=== PATIENT | female | born 1955 | race Caucasian/White ===

== ENCOUNTER → 2019-09-25 12:03 | Outpatient (CLI) | payer BC, SELFPAY ==
--- NOTE | 2019-09-25 12:15 | XR_ITS ---
PROCEDURE: XR ELBOW RT MIN 3V CLINICAL INDICATION: INJURY RT ELBOW Posttraumatic pain COMPARISON: No exams were available for comparison FINDINGS: No fracture or dislocation. No lytic or blastic change. There is normal mineralization. The joint spaces are well-preserved. No significant degenerative/arthritic changes. No erosive changes evident. Other findings:None. IMPRESSION: No acute findings. Dictated by: Daniel Pearson MD 09/25/2019 15:02 Electronically signed by Daniel Pearson MD in [place] 09/25/2019 15:02
== END ==
PROVIDERS: PCP Family Medicine; Visit Provider Nurse Practitioner Family
DX: S59.901A Unspecified injury of right elbow, initial encounter (principal)
CPT/HCPCS: 73080

== ENCOUNTER → 2021-11-18 18:21 | Outpatient (CLI) | payer OTHER, MEDICARE, SELFPAY ==
[2021-11-18 18:24] LABS: Adenovirus,PCR Not Detected (NotDetected); Bordetella Pertussis Not Detected (NotDetected); Chlamydophila Pneumoniae, PCR Not Detected (NotDetected); Coronavirus 229E Not Detected (NotDetected); Coronavirus NL63 Not Detected (NotDetected); Coronavirus OC43 Not Detected (NotDetected); Coronovirus HKU1,PCR Not Detected (NotDetected); Human Metapneumovirus Not Detected (NotDetected); Influenza A, PCR Not Detected (NotDetected); Influenza AH1, 2009 Not Detected (NotDetected); Influenza AH1, PCR Not Detected (NotDetected); Influenza AH3,PCR Not Detected (NotDetected); Influenza B, PCR Not Detected (NotDetected); Mycoplasma Pneumoniae, PCR Not Detected (NotDetected); Parainfluenza 1, PCR Not Detected (NotDetected); Parainfluenza 2, PCR Not Detected (NotDetected); Parainfluenza 3, PCR Not Detected (NotDetected); Parainfluenza 4, PCR Not Detected (NotDetected); Respiratory Syncytial Virus Not Detected (NotDetected); Rhinovirus/Enterovirus Not Detected (NotDetected)
[2021-11-18 23:44] LABS: Coronavirus 19, PCR Detected (NotDetected)
== END ==
PROVIDERS: Visit Provider Nurse Practitioner Family
DX: U07.1 COVID-19 (principal)
CPT/HCPCS: 87581; 87632; 87798; C9803; U0003; U0005

== ENCOUNTER 2022-08-23 17:03 | Emergency (ER) | payer MEDICARE, SELFPAY ==
--- NOTE | 2022-08-23 17:06 | HMH.EDUPEXT ---
Discharge Plan Disposition Patient Disposition: Home, Self-Care Condition: Fair Chief Complaint: Extremity Injury, Upper Prescriptions Prescriptions: No Action levothyroxine 75 mcg tablet 75 mcg PO azithromycin 250 mg tablet 250 mg PO QDAY 5 Days Qty: 6 0RF Referrals Follow up/Referrals: Milana Alegria MD [Primary Care Provider] - See instructions Mike Quiles JR, MD [Physician] - See instructions Activity Restrictions/Add. Instructions Additional Instructions/Restrictions: Follow-up with an orthopedist of your choice. We will please follow-up with the orthopedist within the next 7 days. Keep your affected arm elevated. You may take [id number] Tylenol for pain as needed. Please return to the emergency department if you feel worse in any way. Use of the arm sling as needed. Clinical Impressions Clinical Impression: Fracture of wrist Discharge ED Provider: Maryjo Torres Upper Extremity HPI General Chief Complaint: Extremity Injury, Upper Stated Complaint: [id number] fell injured L wrist Time Seen by Provider: 08/23/22 17:06 Mode of Arrival: Ambulatory Source of Information: Patient and Spouse Limitations: No Limitations History of Present Illness HPI narrative: The patient fell just prior to arrival and injured her left forearm and wrist. She denies any other injuries. She slipped on her wet flip-flops Related Data Home Medications Medication Instructions Recorded Confirmed levothyroxine 75 mcg tablet 75 mcg PO 11/18/21 11/18/21 Previous Rx's Medication Instructions Recorded azithromycin 250 mg tablet 250 mg PO QDAY resp infection 5 11/18/21 days #6 tabs Allergies Allergy/AdvReac Type Severity Reaction Status Date / Time Sulfonamide Allergy Severe BLISTERS Uncoded 11/18/21 16:21 IN MOUTH From Ketorolac Tromethamine Allergy Mild HEADACHE Uncoded 11/18/21 16:21 CRAB LEGS Allergy Unknown SEVERE ABD Uncoded 11/18/21 16:21 CRAMPS Aspirin AdvReac Mild CAUSES Uncoded 11/18/21 16:21 NERVOUSNESS CONTRAST DYE AdvReac Unknown ITCHY RASH Uncoded 11/18/21 16:21 [facility] Medical History (Updated 08/23/22 @ 18:51 by Maryjo Torres MD) Thyroid disease Family History (Updated 08/23/22 @ 17:17 by Anni Pineda RN) Other No significant family history Social History (Updated 08/23/22 @ 17:17 by Anni Pineda RN) Smoking Status: Current every day smoker alcohol intake: never current occupational status: retired Travel in the last 8 weeks: None ROS Obtained: Yes All systems reviewed & no additional complaints except as documented Physical Exam General General appearance: alert and in no apparent distress Head Head exam: atraumatic, normocephalic and normal inspection Eye Eye exam: Present normal appearance, PERRL and EOMI ENT ENT exam: Present normal exam, normal oropharynx, mucous membranes moist, TM's normal bilaterally and normal external ear exam Neck Neck exam: Present normal inspection, full ROM and trachea midline; Absent meningismus or lymphadenopathy Chest Chest inspection: Present normal inspection and symmetric chest wall rise; Absent tenderness Respiratory Respiratory exam: Present normal lung sounds bilaterally; Absent respiratory distress Cardiovascular Cardiovascular exam: Present regular rate and normal rhythm; Absent JVD Abdominal Exam Abdominal exam: Present soft and normal bowel sounds; Absent distention, tenderness or guarding Extremities Exam Extremities exam: Present tenderness (There is tenderness over the distal ulna and radius. There is no deformity. The extremity is neurovascularly intact.) and normal capillary refill; Absent normal inspection, full ROM or calf tenderness Back Exam Back exam: Present normal inspection; Absent tenderness Neurological Exam Neurological exam: Present alert and oriented X3 Psychiatric Psychiatric exam: Present normal affect and normal mood Skin Skin exam: Present wa
--- NOTE | 2022-08-23 17:07 | PC.NURSE ---
ED MD AT BEDSIDE FOR EVALUATION
--- NOTE | 2022-08-23 17:10 | XR_ITS ---
PROCEDURE INFORMATION: Exam: XR Left Forearm Exam date and time: 08/23/2022 5:11 PM Age: 67 years old Clinical indication: Injury or trauma; Fall; Blunt trauma (contusions or hematomas); Arm, lower; Left TECHNIQUE: Imaging protocol: Radiologic exam of the Left forearm. Views: 2 views. COMPARISON: CR Wrist L 08/23/2022 5:09 PM FINDINGS: Bones/joints: Mildly displaced distal metaphyseal fractures of the radius and ulna. There is mild posterior angulation of the radial fracture. Mild demineralization of the bones. Soft tissues: Edema around the fractures. IMPRESSION: Mildly displaced distal metaphyseal fractures of the radius and ulna. There is mild posterior angulation of the radial fracture.
--- NOTE | 2022-08-23 17:10 | XR_ITS ---
PROCEDURE INFORMATION: Exam: XR Left Wrist Exam date and time: 08/23/2022 5:09 PM Age: 67 years old Clinical indication: Injury or trauma; Fall; Blunt trauma (contusions or hematomas); Wrist; Left TECHNIQUE: Imaging protocol: Radiologic exam of the Left wrist. Views: 3 or more views. COMPARISON: No relevant prior studies available. FINDINGS: Bones/joints: Mildly displaced distal metaphyseal fractures of the radius and ulna. There is mild posterior angulation of the radial fracture. Mild demineralization of the bones. Soft tissues: Edema around fractures. IMPRESSION: Mildly displaced distal metaphyseal fractures of the radius and ulna. There is mild posterior angulation of the radial fracture.
[2022-08-23 17:12] VITALS: BP 164/104; PULSE 83; RESP 18; TEMP 36.8; O2SAT 99; BMI 21.2
--- NOTE | 2022-08-23 17:17 | PC.NURSE ---
pt ambulated to xray
--- NOTE | 2022-08-23 17:18 | PC.NURSE ---
PT TO XR
--- NOTE | 2022-08-23 17:23 | PC.NURSE ---
PT RETURNED FROM XR
[2022-08-23 17:27] VITALS: BP 154/90; PULSE 72; RESP 18; O2SAT 99
[2022-08-23 17:31] VITALS: BP 160/89; PULSE 75; RESP 16; O2SAT 97
[2022-08-23 18:00] VITALS: BP 155/95; PULSE 78; RESP 16; O2SAT 97
--- NOTE | 2022-08-23 18:27 | PC.NURSE ---
PT UPDATED ON POC, ASSISTED UP TO BR AT THIS TIME
--- NOTE | 2022-08-23 18:40 | PC.NURSE ---
ED MD AT BEDSIDE TO APPLY SPLINT
--- NOTE | 2022-08-23 19:11 | PC.NURSE ---
sling applied to L arm
[2022-08-23 19:56] VITALS: BP 152/92; PULSE 78; RESP 16; TEMP 36.6; O2SAT 98
== END 2022-08-23 19:58 | disposition home or self-care (01) ==
PROVIDERS: Emergency Provider Emergency Medicine; PCP Family Medicine
DX: S52.602A Unspecified fracture of lower end of left ulna, initial encounter for closed fracture (principal); S52.92XA Unspecified fracture of left forearm, initial encounter for closed fracture; E07.9 Disorder of thyroid, unspecified; Z79.899 Other long term (current) drug therapy; Z88.2 Allergy status to sulfonamides; Z88.6 Allergy status to analgesic agent; Z88.8 Allergy status to other drugs, medicaments and biological substances; Z91.041 Radiographic dye allergy status; Z91.013 Allergy to seafood; W01.198A Fall on same level from slipping, tripping and stumbling with subsequent striking against other object, initial encounter; F17.210 Nicotine dependence, cigarettes, uncomplicated
CPT/HCPCS: 29125; 73090; 73110; 99284

== ENCOUNTER → 2023-09-11 09:19 | Outpatient (CLI) | payer MEDICARE, SELFPAY ==
--- NOTE | 2023-09-11 09:25 | XR_ITS ---
FINAL REPORT CLINICAL HISTORY: Osteoporosis screening COMPARISON: None FINDINGS: Using L1-4, the bone mineral density of the spine is 0.685 g/cm2, corresponding to T-score of -3.3, consistent with osteoporosis. Using the left hip, the bone mineral density of the femoral neck is 0.683 g/cm2, corresponding to a T-score of -2.1, consistent with low bone density. Using the right hip, the bone mineral density of the femoral neck is 0.545 g/cm2, corresponding to a T-score of -2.7, consistent with osteoporosis. FRAX not reported because T score at or below -2.5. NOTE: T-score: Standard deviation compared with peak bone mass of young adult mean. *Following the recommendations of the International Society of Bone densitometry, classification of hip BMD is based on the lower of two T-scores; total hip or femoral neck. IMPRESSION: Diminished bone mineral density consistent with osteoporosis. Reviewed, Interpreted and Dictated by James Reagan III, MD Transcribed by Cheryle Bradley Authenticated and [facility]
== END ==
PROVIDERS: PCP Family Medicine; Visit Provider Nurse Practitioner
DX: M81.0 Age-related osteoporosis without current pathological fracture
CPT/HCPCS: 77080

== ENCOUNTER 2023-12-25 11:57 | Outpatient (CLI) | payer MEDICARE, SELFPAY ==
--- NOTE | 2023-12-25 12:12 | XR_ITS ---
FINAL REPORT CLINICAL HISTORY: CHEST PAIN x 1 month FINDINGS: Two views of the chest were obtained. The heart size and pulmonary vascularity are within normal limits. The mediastinum is normal. No acute pulmonary abnormality is identified. The lungs are hyperinflated consistent with COPD. There is no pneumothorax. The bony thorax is intact. IMPRESSION: Hyperinflation consistent with COPD Reviewed, Interpreted and Dictated by James Reagan III, MD Transcribed by Kelle Thompson Authenticated and [facility]
== END 2023-12-25 23:59 ==
LOC: RAD 12:00
PROVIDERS: PCP Nurse Practitioner; Visit Provider Nurse Practitioner
DX: R07.9 Chest pain, unspecified (principal); K21.00 Gastro-esophageal reflux disease with esophagitis, without bleeding
CPT/HCPCS: 71046

== ENCOUNTER 2024-01-18 06:14 | Outpatient (CLI) | payer MEDICARE, SELFPAY ==
--- NOTE | 2024-01-18 06:21 | NM_ITS ---
APPROVED REPORT Exam: Nuclear Stress Test Indication: HYPERLIPIDEMIA, C.P. Patient Location: Outpatient Stress Tech: Mandi Nunn NE Tech:Anni WakefieldCLEM RT(R)(N) Ht: 5 ft 5 in Wt: 128 lbs Bra Size: 38C HR: 59 bpm BP: 180/95 mmHg BSA: 1.64 m2 Rhythm: NSR TID: 1.14 BMI: 21.2 History: HYPERLIPIDEMIA, C.P Procedure: Patient exercised on Fausto protocol 6:30 minutes and sec, resting heart rate 59 bpm, resting blood pressure 180/95 mmHg, with exercise maximum heart rate achived was 144 bpm which is 95 % of the maximum predicted heart rate and blood pressure was 181/97 mmHg. Test was stopped due to FATIGUE, C.P.. Patient has Average exercise capacity, achieved 7.0 METs of workload on treadmill, the blood pressure response to exercise was Blunted. Cardiac Stress and Resting SPECT Images: Cardiac Stress and Resting SPECT images were obtained using technetium 99m Myoview 31.0 mCi stress and 10.75 mCi at rest. Resting and stress imaging in supine and prone positions demonstrate no evidence of fixed or reversible perfusion defects. Gated imaging demonstrates normal global and regional LV systolic function. LVEF is calculated at 58%. Conclusion: No evidence of fixed or reversible perfusion defects. Gated imaging demonstrates normal global and regional LV systolic function. LVEF is calculated at 58%. Of note, the patient had average exercise capacity with Fausto protocol. At baseline, she had elevated BP. At peak stress, she had a blunted BP response to exercise. Electronically signed by : Nisreen Aaron MD 01/21/2024 16:36:13
--- NOTE | 2024-01-18 07:35 | CA_ITS ---
APPROVED REPORT EXAM: Comprehensive 2D, Doppler, and color-flow Echocardiogram Book Canvasser: Savi Bello, NATI, RVS Ht: 5 ft 5 in Wt: 128lbs BSA: 1.64 BP: 152/86 mmHg Indications: CP,COPD,ABN EKG, HTN, EX-SMOKER 2D Dimensions Aortic Root 3.02 cm LA Volume 36.00 mL Left Atrium 2.72 cm LA Volume Index 22.00 mL/m2 (M/F) 16-34 RVID Base (AP4) 2.79 cm (M/F) 2.5-4.1 EF AP4 54.80 % LVOT 1.80 cm (M/F) 1.5-2.5 GL Strain -18.9 % M-Mode Dimensions RVDd 1.97 cm (0.9-2.6) LVDd 4.60 cm (3.5-5.7) Ao Diam 3.26 cm (2.0-3.7) LVDs 3.00 cm (3.5-5.7) IVSd 0.81 cm (0.6-1.1) PWd 0.72 cm (0.6-1.1) EF (Teich) 64.00% EPSs 0.69 cm FS 34.80% EDV (Teich) 97.30 mL TAPSE 1.68 (<1.7) ESV (Teich) 35.00 mL LV Diastology E Decel Time 206 (160-240 msec) E/A Ratio 0.94 MED E' 8.1 (>= 7 cm/sec) MED A' 11.80 cm/s E'/MED E' Ratio 8.75 (<= 14) LAT E' 6.1 (>= 10 cm/sec) LAT A' 9.90 cm/s E/LAT E' Ratio 11.62 (<= 14) Aortic Valve LVOT Max 80.0 (70-110 cm/s) NUBIA Index 1.15 cm2/m2 LVOT VTI 16.92 cm AoV Peak Julio. 105.0 (50-130 cm/s) AI PHT 558.00 ms AO Mean GR. 2.20 (<5 mmHg) AO VTI 22.8 (18-25 cm) NUBIA (VTI) 1.89 (2.5-4.5 cm2) Mitral Valve MV E Max Julio. 71.0 (40-130 cm/s) MV A Velocity 75.0 (40-130 cm/s) E/A Ratio 0.94 MV Decel. Time 206 (160-240 ms) Pulmonary Valve GA End VMAX 171.0 cm/s Tricuspid Valve TR P. Velocity 265.00 cm/s RAP Estimate 10.00 mmHg RVSP 38.00 mmHg Left Ventricle The left ventricle is normal size. The left ventricular systolic function is normal. The left ventricular ejection fraction is within the normal range. There is normal left ventricular wall thickness. There is normal LV segmental wall motion. The left ventricular diastolic function is normal. LVEF is 60%. Right Ventricle The right ventricle is normal size. The right ventricular systolic function is normal. Atria The left atrium size is normal. The right atrium size is normal. There is no Doppler evidence of interatrial shunt. Aortic Valve The aortic valve is mildly thickened. There is no aortic valvular stenosis. Mild aortic regurgitation. Mitral Valve The mitral valve leaflets are mildly thickened. No evidence of mitral valve stenosis. Mild mitral regurgitation. Tricuspid Valve The tricuspid valve leaflets are thin and pliable. Mild to moderate tricuspid regurgitation. RVSP is 25-30 mmHg. Pulmonic Valve The pulmonary valve is normal in structure. Trace pulmonic regurgitation. Great Vessels The aortic root is normal in size. The ascending aorta is normal in size. IVC is normal in size and collapses >50% with inspiration. Pericardium There is no pericardial effusion. Other Information Study Quality: Fair Conclusion Normal biventricular systolic function. Mild AI, mild MR. Mild to moderate TR. RVSP is 25-30 mmHg. Electronically signed by : Nisreen Aaron MD 01/22/2024 22:47:51
--- NOTE | 2024-01-18 08:41 | CA_ITS ---
APPROVED REPORT Exam: Exercise Treadmill Technologist: Mandi Villasenor, Ht: 5 ft 5 in Wt: 128 lbs BSA: 1.64 m2 HR: 59 bpm BP: 180/95 mmHg Rhythm: NSR Medical History Medications: Levothyroxine,,,,, Vitamin D3,,,,, Multivitamin with iron,,,,, BREztri,,,,, Stress Test Details Test: Fausto HR Resting HR: 70 bpm Max Heart Rate (APMHR): 152 bpm Max HR Achieved: 144 bpm Target HR (85% APMHR): 129 bpm % of APMHR: 95 Recovery HR: 80 bpm HR response to stress: Normal HR response to stress BP Resting BP: 181.0/97.0 mmHg Max BP: 181.0/97.0 mmHg Recovery BP: 169.0/90.0 mmHg BP response to stress: Blunted blood pressure response to stress. ECG Resting ECG: NSR, nonspecific ST changes in inferior and lateral leads Stress EC.[address] depression Arrhythmia: PVCs, PACs Recovery ECG: Return to baseline within 3 minutes of recovery Recovery Arrhythmia: PVCs Clinical Exercise duration: 06:31 min Highest Stage Achieved: III Exercise capacity: 7.0 METs Overall Exercise Capacity for Age: Average Stress ECG Conclusion The patient was able to exercise for a total of 6 minutes, 31 seconds. She achieved a total of 7.0 METS. She has normal HR, but blunted BP, response to exercise. She has average exercise capacity compared to age and sex matched peers. Max HR: 144 % of PM: 95% Max BP: 175/87 METs: 7.0 Test stopped due to: SOA, Fatigue Symptoms: CP which started & ended while walking. Arrhythmias/Ectopy: Occasional PACs and PVCs ST-T Changes: 0.[address] depression Conclusion: Average exercise capacity. Blunted BP response to exercise. Nondiagnostic ECG stress test due to baseline abnormalities. Myoview images reported separately. Test Summary REST . . . . . . . Sitting REST . . . . . . . Standing REST 05:15 0.0 1.2 70 . 181/ 97 . . Stage 1 01:00 10.0 1.7 98 . . . . Stage 1 02:00 10.0 1.7 120 . . . . Stage 1 03:00 10.0 1.7 129 . 172/ 90 . . Stage 2 01:00 12.0 2.5 127 . . . . Stage 2 02:00 12.0 2.5 133 . 172/ 90 . . Stage 2 . . . . . . . Myoview Injected Stage 2 03:00 12.0 2.5 135 . 172/ 90 . . Stage 3 00:31 14.0 3.4 143 . . . Stop exercise at 06:31 RECOVERY 01:00 0.0 0.0 118 . . . . RECOVERY 02:00 0.0 0.0 80 . . . . RECOVERY 03:00 0.0 0.0 85 . 175/ 87 . . RECOVERY 04:00 0.0 0.0 86 . 174/ 93 . . RECOVERY 05:00 0.0 0.0 82 . 169/ 90 . . RECOVERY 05:19 0.0 0.0 82 . 169/ 90 . . Electronically signed by : Nisreen Aaron MD 01/21/2024 16:34:15
[2024-01-18] MEDS: SODIUM CHLORIDE 0.9% 10ML SYR (RAD ONLY) 10 ML IV ×2 (09:20)
[2024-01-18] MEDS: ISOTOPE MYOVIEW (PER STUDY) 1 DOSE IV (09:20)
== END 2024-01-18 23:59 ==
LOC: RAD 06:14
PROVIDERS: PCP Family Medicine; Visit Provider Internal Medicine
DX: I10 Essential (primary) hypertension (principal); J44.9 Chronic obstructive pulmonary disease, unspecified; R07.9 Chest pain, unspecified; R94.31 Abnormal electrocardiogram [ECG] [EKG]; Z13.6 Encounter for screening for cardiovascular disorders; Z82.49 Family history of ischemic heart disease and other diseases of the circulatory system; Z72.0 Tobacco use
CPT/HCPCS: 78452; 93017; 93018; 93306; A9502

== ENCOUNTER 2024-01-22 09:42 | Outpatient (CLI) | payer MEDICARE, SELFPAY ==
--- NOTE | 2024-01-22 09:43 | CT_ITS ---
FINAL REPORT TECHNIQUE: Axial images were obtained from the lung apex to the mid abdomen by computed tomography. Coronal reformatted images were obtained. This study was performed with techniques to keep radiation doses as low as reasonably achievable, (ALARA). Individualized dose reduction techniques using automated exposure control or adjustment of mA and/or kV according to the patient''s size were employed. CLINICAL HISTORY: COPD COMPARISON: None FINDINGS: There is no axillary adenopathy. There are multiple borderline sized mediastinal nodes. Heart size is normal. There is a small pericardial effusion. There are no pleural effusions. There is moderate emphysema and mild scarring. There is a calcified granuloma in the right middle lobe. There are several small nodules in the lung bases. For example a groundglass nodule in the left lower lobe measures 5 mm and is best seen on image 59. Limited images of the upper abdomen demonstrate no acute findings. IMPRESSION: Moderate emphysema. Small nodules, nonspecific. Recommend follow-up chest CT in 6 to 12 months. Reviewed, Interpreted and Dictated by James Reagan III, MD Transcribed by Cheryle Bradley Authenticated and . [facility]
--- NOTE | 2024-01-22 09:43 | US_ITS ---
FINAL REPORT CLINICAL HISTORY: AAA screening, family hx AAA COMPARISON: None FINDINGS: ULTRASOUND ABDOMINAL AORTA Findings: Sagittal and transverse images with Doppler exam was performed of the aorta. There is no evidence of abdominal aortic aneurysm. Aorta measures up to 2.1 cm. Mild to moderate plaque disease is noted. Proximal iliac vessels are normal in caliber. Aorta is patent by Doppler exam without gross stenosis. IMPRESSION: No evidence of aortic aneurysm Reviewed, Interpreted and Dictated by James Reagan III, MD Transcribed by Emily Cool Authenticated and [facility]
== END 2024-01-22 23:59 ==
LOC: RAD 09:43
PROVIDERS: PCP Family Medicine; Visit Provider Internal Medicine
DX: I10 Essential (primary) hypertension (principal); J44.9 Chronic obstructive pulmonary disease, unspecified; R07.9 Chest pain, unspecified; R94.31 Abnormal electrocardiogram [ECG] [EKG]; Z13.6 Encounter for screening for cardiovascular disorders; Z82.49 Family history of ischemic heart disease and other diseases of the circulatory system
CPT/HCPCS: 71250; 76705

== ENCOUNTER 2024-05-20 09:54 | Outpatient (CLI) | payer MEDICARE, SELFPAY ==
[2024-05-20 10:40] VITALS: PULSE 79; PULSE 82
[2024-05-20] MEDS: ALBUTEROL 0.083% 2.5 MG/3 ML NEB IH (10:40)
== END 2024-05-20 23:59 | disposition home or self-care (01) ==
LOC: RT 09:55
PROVIDERS: PCP Family Medicine; Visit Provider Internal Medicine Pulmonary Disease
DX: R06.09 Other forms of dyspnea (principal)
CPT/HCPCS: 94060; 94618; 94640; 94727; 94729; J7613

== ENCOUNTER 2024-09-03 11:15 | Outpatient (CLI) | payer MEDICARE, SELFPAY ==
[2024-09-03 11:55] VITALS: BP 156/84; PULSE 72; RESP 17; O2SAT 98
[2024-09-03] MEDS: 0.9 % SODIUM CHLORIDE 50 ML 100 ML IV (11:55)
[2024-09-03] MEDS: ZOLEDRONIC ACID/MANNITOL-WATER 5 MG/100 ML PGGYBK.BTL 400 MG IV (11:55)
[2024-09-03 12:25] VITALS: BP 162/73; PULSE 63; RESP 16
== END 2024-09-03 12:25 | disposition home or self-care (01) ==
LOC: INF 11:18
PROVIDERS: PCP Family Medicine; Visit Provider Nurse Practitioner
DX: C34.90 Malignant neoplasm of unspecified part of unspecified bronchus or lung (principal)
CPT/HCPCS: 96374; J3489

== ENCOUNTER 2024-11-14 08:41 | Outpatient (CLI) | payer MEDICARE, SELFPAY ==
--- NOTE | 2024-11-14 08:46 | XR_ITS ---
FINAL REPORT CLINICAL HISTORY: SCREENING COMPARISON: 09/11/2023 FINDINGS: Using L1-4, the bone mineral density of the spine is 0.691 g/cm2, corresponding to T-score of -3.2, consistent with osteoporosis. Previously was 0.685 g/cm? with a T-score of -3.3. Using the left hip, the bone mineral density of the femoral neck is 0.628 g/cm2, corresponding to a T-score of -2.0, consistent with osteopenia. Previously was 0.626 g/cm? with a T-score of -2.0. Using the right hip, the bone mineral density of the femoral neck is 0.630 g/cm2, corresponding to a T-score of -2.0, consistent with osteopenia. Previously was 0.545 g/cm? with a T-score of -2.7. FRAX not reported because some T-score at or below -2.5; patient treated for osteoporosis. NOTE: T-score: Standard deviation compared with peak bone mass of young adult mean. *Following the recommendations of the International Society of Bone densitometry, classification of hip BMD is based on the lower of two T-scores; total hip or femoral neck. IMPRESSION: Diminished bone mineral density consistent with osteoporosis. Reviewed, Interpreted and Dictated by Jian Garcia MD Transcribed by Cheryle Bradley Authenticated and [facility]
== END 2024-11-14 23:59 | disposition home or self-care (01) ==
LOC: RAD 08:42
PROVIDERS: PCP Family Medicine; Visit Provider Family Medicine
DX: M85.88 Other specified disorders of bone density and structure, other site (principal)
CPT/HCPCS: 77080

== ENCOUNTER 2024-12-05 14:19 | Outpatient (CLI) | payer MEDICARE, SELFPAY ==
--- NOTE | 2024-12-05 14:23 | US_ITS ---
PROCEDURE: US PELVIC CLINICAL INDICATION: LLQ ABDMNL PAIN COMPARISON: No exams were available for comparison FINDINGS: Transabdominal sonographic images of the pelvis were obtained. Difficult exam secondary to the transabdominal approach. UTERUS: 6.0cm x 4.9 cmx 2.4cm anteverted with a combined endometrial thickness of 4.6mm. LEFT OVARY: 1.3cmx1.2cmx0.8cm with a volume of 0.7ml. RIGHT OVARY: 2.1cmx 1.2cmx1.0cm with a volume of 1.2ml. Both ovaries are seen and appear normal. Doppler flow to both ovaries are seen. There is no fluid in the cul-de-sac. IMPRESSION: 1. Anteverted uterus small in size and normal in shape. The endometrium is thin measuring 4.6 mm. 2. Both ovaries are seen and appear atrophic and small. 3. No fluid in the cul-de-sac. Dictated by: Gerry Castillo MD 12/06/2024 14:14 Gerry Castillo MD in [place] 12/06/2024 14:14
== END 2024-12-05 23:59 | disposition home or self-care (01) ==
LOC: RAD 14:20
PROVIDERS: PCP Nurse Practitioner; Visit Provider Nurse Practitioner
DX: R10.32 Left lower quadrant pain (principal)
CPT/HCPCS: 76856

== ENCOUNTER 2024-12-19 13:28 | Outpatient (CLI) | payer MEDICARE, SELFPAY ==
--- NOTE | 2024-12-19 13:29 | CT_ITS ---
FINAL REPORT TECHNIQUE: Axial images through the abdomen and pelvis were performed without contrast. This study was performed with techniques to keep radiation doses as low as reasonably achievable, (ALARA). Individualized dose reduction techniques using automated exposure control or adjustment of mA and/or kV according to the patient's size were employed. CLINICAL HISTORY: left sided pain COMPARISON: None FINDINGS: CT ABDOMEN AND PELVIS WITHOUT CONTRAST: Abdomen: The lung bases are clear. The liver parenchyma is homogeneous. The gallbladder is contracted and contains multiple gallstones. The spleen, pancreas, adrenals and kidneys are unremarkable. Pelvis: The urinary bladder is unremarkable. The appendix has been surgically resected. There is no pelvic mass or inflammation. There is moderate descending and sigmoid diverticulosis without evidence of acute inflammatory change. The uterus is anteverted. IMPRESSION: Multiple gallstones are present in a contracted gallbladder. Moderate descending and sigmoid diverticulosis without evidence of acute inflammatory change. Reviewed, Interpreted and Dictated by Jian Garcia MD Transcribed by Emily Cool Authenticated and [facility]
== END 2024-12-19 23:59 | disposition home or self-care (01) ==
LOC: RAD 13:29
PROVIDERS: PCP Nurse Practitioner; Visit Provider Nurse Practitioner
DX: R10.32 Left lower quadrant pain (principal)
CPT/HCPCS: 74176

== ENCOUNTER 2025-02-11 15:19 | Outpatient (CLI) | payer MEDICARE, SELFPAY ==
--- NOTE | 2025-02-11 15:21 | CT_ITS ---
FINAL REPORT TECHNIQUE: Thin section axial images were obtained through the lungs using a low-dose technique per lung cancer screening protocol. Reconstruction images were obtained using the axial data. Exam was performed using dose reduction technique. CLINICAL HISTORY: lung cancer screening former smoker x 1 yr 1ppd x 53 yrs COMPARISON: Chest CT dated 01/22/2024 FINDINGS: CTDLvol: 2.90 DLP: 99.51 Lungs: Emphysema is noted. Previously seen nodular opacities in the left lower lobe have resolved. On series 4 image 42, there is a subpleural 3 mm right lower lobe nodule which is unchanged. There is evidence of prior granulomatous disease. There is no consolidation. Lymph nodes: No thoracic lymphadenopathy. Mediastinum: Heart size is normal. Pleura/pericardium: No pleural effusion. Trace pericardial effusion. Other: No acute abnormality in the upper abdomen. IMPRESSION: Stable right lower lobe nodule with resolution of previously seen left lower lobe nodular opacities. Lung RADS: 2 Recommendation: 12-month follow-up low-dose chest CT. Reviewed, Interpreted and Dictated by Meg Crockett MD Transcribed by Kelle Thompson Authenticated and [facility]
== END 2025-02-11 23:59 | disposition home or self-care (01) ==
LOC: RAD 15:19
PROVIDERS: PCP Nurse Practitioner; Visit Provider Internal Medicine Pulmonary Disease
DX: Z87.891 Personal history of nicotine dependence (principal)
CPT/HCPCS: 71271

== ENCOUNTER 2025-02-18 11:42 | Outpatient (CLI) | payer MEDICARE, SELFPAY ==
[2025-02-18 12:39] LABS: Basophils # 0.1 K/mm3 (0-0.2); Basophils % 0.8 % (0.1-2.0); Eosinophils # 0.4 K/mm3 (0.0-0.4); Eosinophils % 5.6 % (0.1-12.0); Hemoglobin 12.8 g/dL (12.2-16.2); Lymphocytes % 31.1 % (10-50); Mean Corpuscular HGB Conc 32.8 g/dL (31.8-35.4); Mean Corpuscular Hemoglobin 29.7 pg (27.0-31.2); Mean Corpuscular Volume 90.5 fl (81-99); Mean Platelet Volume 9.8 fl (7.4-10.4); Monocytes # 0.6 K/mm3 (0.1-1.0); Monocytes % 8.6 % (1.7-9.3); Neutrophils # 3.4 K/mm3 (1.8-7.8); Neutrophils % 53.7 % (37.0-80.0); Platelet Count 316 K/mm3 (142-424); Red Blood Count 4.31 M/mm3 (4.20-5.40); Red Cell Distribution Width 13.2 % (11.5-17.5); White Blood Count 6.4 K/mm3 (4.8-10.8)
[2025-02-18 13:01] LABS: Alanine Aminotransferase 25 U/L (12-78); Albumin Level 4.5 g/dl (3.5-5.0); Alkaline Phosphatase 74 U/L (38-126); Anion Gap 8.6 mEq/L (5-15); Aspartate Amino Transferase 37 U/L (14-36); Bilirubin,Direct 0.2 mg/dl (0.0-0.4); Bilirubin,Indirect 0.4 mg/dL (0.0-0.9); Bilirubin,Total 0.6 mg/dl (0.2-1.3); Bilirubin,Unconjugated 0.3 mg/dL (0.0-1.1); Blood Urea Nitrogen 22 mg/dl (7-17); Calcium 9.7 mg/dl (8.4-10.2); Carbon Dioxide 31 mmol/L (22.0-30.0); Chloride 103 mmol/L (98-107); Cholesterol 242 mg/dl (140-200); Estimated Glomerular Filt Rate 55 ml/min (>60); GFR (African American) 66 ML/MIN (>60); Glucose 86 mg/dl (74-100); HDL Cholesterol 61 mg/dl (40-60); Potassium 4.6 mmoL/L (3.5-5.1); Sodium 138 mmol/L (136-145); Total Protein,Serum 7.3 g/dl (6.3-8.2); Triglycerides 124 mg/dl (30-150); VLDL Cholesterol 25 mg/dL (0-40)
[2025-02-18 13:12] LABS: Direct LDL Cholesterol 140.88 mg/dL (100-129)
[2025-02-18 15:17] LABS: Thyroid Stimulating Hormone 1.19 uIU/mL (0.465-4.68)
== END 2025-02-18 23:59 | disposition home or self-care (01) ==
LOC: LAB 11:43
PROVIDERS: PCP Family Medicine; Visit Provider Nurse Practitioner
DX: I10 Essential (primary) hypertension (principal); R07.9 Chest pain, unspecified; R06.09 Other forms of dyspnea
CPT/HCPCS: 36415; 80048; 80061; 80076; 84439; 84443; 85025

== ENCOUNTER 2025-03-04 10:29 | Outpatient (CLI) | payer MEDICARE, SELFPAY | END 2025-03-04 23:59 | disposition home or self-care (01) | LOC: PREOP 10:31 | PROVIDERS: PCP Family Medicine; Visit Provider Surgery | DX: R69 Illness, unspecified (principal) ==

== ENCOUNTER 2025-03-05 08:05 | Day surgery (SDC) | payer MEDICARE, SELFPAY ==
[2025-02-27 11:14] VITALS: BMI 24.6
[2025-03-04 10:55] VITALS: BMI 26.4
[2025-03-05] VITALS (10 sets, daily range): BP systolic 136–148; BP diastolic 74–89; PULSE 65–84; RESP 16–20; TEMP 36.1–36.6; O2SAT 94–99
[2025-03-05] MEDS: 0.9 % SODIUM CHLORIDE 1000ML 1,000 ML 25 ML IV (08:23)
--- NOTE | 2025-03-05 10:56 | P.PNANES_ITS ---
[facility] Disclaimer: The information contained in this section may have been updated after the patient was seen, as this information can be updated by other users. Medical History HLD (hyperlipidemia) History of smoking 30 or more pack years Dyspnea on exertion Lung nodule Encounter for screening for malignant neoplasm of lung Pulmonary emphysema Epigastric pain Family history of abdominal aortic aneurysm (AAA) Screening for AAA (abdominal aortic aneurysm) HTN (hypertension) COPD (chronic obstructive pulmonary disease) Abnormal electrocardiogram [ECG] [EKG] Thyroid disease Surgical History History of ovarian cystectomy History of tubal ligation History of appendectomy History of surgery on upper extremity Family History Other Cancer Diabetes Heart disease Hypertension Lung cancer Stroke Social History Smoking Status: Former smoker smoking status stop date: 11/2023 alcohol intake: never substance use type: denies use current occupational status: retired Travel in the last 8 weeks: Inside the [facility] Anesthesia Checklist Patient Identification Patient Identification: Arm Band Structural Data Admitted From: Home Planned Operative Procedure/s: Laparoscopic Cholecystectomy Consent for Planned Operative Procedure(s) Verified: Yes Verified Documents: Surgical Consent and History and Physical NPO Status Verified Time NPO: 00:00 Additional verifications Anesthesia Reactions: No Hx Blood Transfusions: No Blood Transfusion Reaction: No Airway Assessment Mallampati Score:: Class II C-Spine Mobility Assessed: Yes TMJ Mobility Assessed: Yes Dentition: Good Dentition Neurological Assessment Level of Consciousness: Awake, Alert and Appropriate Anesthesia Plan Anesthesia Risk discussed: Yes Anesthesia Plan: Verified ASA Class: III Anesthesia Type: General
[2025-03-05] MEDS: CEFAZOLIN SODIUM 2 GM in 0.9 % SODIUM CHLORIDE 100 ML IV (11:50)
[2025-03-05] MEDS: LIDOCAINE 1% 20ML MDV 20 ML (11:59)
--- NOTE | 2025-03-05 12:38 | EXP.OP.NOTE ---
Date of procedure: 03/05/25 Pre-op Diagnosis:: Cholelithiasis Gallbladder contraction Post-op Diagnosis:: Chronic calculus cholecystitis Procedure performed:: Laparoscopic cholecystectomy Surgeon:: Randy Anthony MD Anesthesia: GETMilana Estimated blood loss (mL): 15 Operative findings:: Significant pericholecystic fat stranding Significant infundibular thickening Operative note:: After informed consent was obtained, the patient was taken to the operating room and placed in the supine position. General anesthesia was induced and the abdomen was prepped and draped in a sterile fashion. After infiltration with local anesthetic an infraumbilical incision was made. A Veress needle was placed in position. The abdomen was insufflated. A 5 mm optical trocar was placed in position. Under direct visualization, a 12 mm trocar was placed in the subxiphoid position and 2 additional 5 mm trocars were placed in the right upper quadrant. The gallbladder was elevated up and over the liver margin. The tissue around the cystic duct was carefully dissected. 3 clips were placed proximally and the duct was transected with harmonic latrice. Harmonic latrice were then utilized to dissect the gallbladder away from the liver margin with careful attention to the control of the cystic artery. The gallbladder was placed in a retrieval bag and removed through the subxiphoid trocar site. The right upper quadrant was thoroughly irrigated. No active bleeding or bile leak was noted. Fascia at the subxiphoid trocar site was reapproximated utilizing the NeoClose device. The remaining trocars were removed. All wounds were irrigated and skin was closed with 4-0 Monocryl in a subcuticular fashion. Steri-Strips were applied. The patient's anesthetic agents were reversed and extubation was completed prior to transfer to recovery in stable condition. Condition: stable Disposition: PACU Specimens:: Gallbladder and contents Complications:: No immediate
--- NOTE | 2025-03-05 12:51 | EXP.ANES.I ---
[facility] Anesthesia Record Part I Anesthesia Record I Intake, IV Amount: 700 Hydration: Adequate Estimated blood loss (mL): 0 Urine output (mL): 0 Blood Pressure: 143/89 SaO2: 94 Pulse Rate: 84 Airway Patency: Patent Respiratory Rate: 20 Temperature: 97.0 F Patient is:: Awake and Stable Stable to PACU at:: 12:44
[2025-03-05] MEDS: MORPHINE 2MG/ML SYRINGE 1 MG IV (13:15)
[2025-03-05] MEDS: HYDROCODONE/APAP 5/325 MG TABLET 1 TAB (13:36)
[2025-03-06 07:16] VITALS: BP 138/74; PULSE 78; RESP 16; TEMP 36.6; O2SAT 96
--- NOTE | 2025-03-06 07:16 | EXP.ANES.II ---
[facility] Anesthesia Record Part II Anesthesia Record Part II Discharge Time: 13:19 Destination: Surgical Day Care (OP Surgery) PACU nurse assessment reviewed?: Yes Patient Condition:: Good Anesthesia Complications:: None Swallowing reflex intact?: Yes Airway Patency: Patent Cyanosis?: No Blood Pressure: 138/74 SaO2: 96 Respiratory Rate: 16 Pulse Rate: 78 Temperature: 97.9 F Mental Status: Alert & Oriented Pain level:: 3 Nausea and/or vomitting:: None Intake, IV Amount: 0 Hydration: Adequate
== END 2025-03-05 14:00 | disposition home or self-care (01) ==
PROVIDERS: PCP Family Medicine; Visit Provider Surgery
PROC: 0FT44ZZ Resection of Gallbladder, Percutaneous Endoscopic Approach (ICD-10-PCS; CPT 47562; principal; 2025-03-05 10:30)
DX: K80.10 Calculus of gallbladder with chronic cholecystitis without obstruction (principal)
CPT/HCPCS: 47562; 88304; 96374; J0690; J1100; J2003; J2270; J2405; J2704; J3010; J7030